=== PATIENT | male | born 1985 | race Two or more races ===

== ENCOUNTER 2022-12-09 18:28 | Emergency (ER) | payer SELFPAY ==
[~2022-12-09] VITALS: Ht 167.6 cm; Wt 59.1 kg
[2022-12-09] MEDS ORDERED: HYDROCODONE/ACETAMINOPHEN 5-325 MG TABLET PO ONE (19:00)
[2022-12-09] MEDS ORDERED: PERTUSS(ACELL),DIPH,TET VAC/PF 0.5 ML SYRINGE IM. ONE (19:00)
[2022-12-09 20:53] VITALS: BP 122/69
== END 2022-12-09 21:00 | disposition home or self-care (01) ==
LOC: EMS 18:33
DX: S52.122A Displaced fracture of head of left radius, initial encounter for closed fracture (principal); S62.309A Unspecified fracture of unspecified metacarpal bone, initial encounter for closed fracture; V29.888A Rider (driver) (passenger) of other motorcycle injured in other specified transport accidents, initial encounter; Y93.89 Activity, other specified; Y92.89 Other specified places as the place of occurrence of the external cause; Y99.8 Other external cause status
CPT/HCPCS: 29105; 90471; 90715; 99284